=== PATIENT | female | born 1945 | race Caucasian/White ===

== ENCOUNTER 2018-11-23 08:00 | Outpatient (CLI) | payer MEDICARE, MEDICAID ==
[2015-06-03 13:33] VITALS: BMI 19.4
[~2018-11-23 08:00] MED LIST: ARTIFICIAL TEAR15 ML EACH EYE; ASPIRIN81 MG PO; CARDIZEM CD180 MG PO; COLACE100 MG PO; DESERYL100 MG PO; FLUTICASONE PRO16 GM NASAL; HYDROCODONE-APA1 TAB PO; LEVAQUIN500 MG PO; LISINOPRIL-HCTZ1 T13 PO; LOVENOX40 MG/0.4 SC; NEURONTIN 300300 MG PO; NEURONTIN600 MG PO; ONDANSETRON4 MG/2 M3 IV; PHENERGAN25 M1 PO; PLAVIX75 MG PO; PRAVACHOL20 MG PO; PREVACID30 MG PO; RESTORIL15 MG PO; SENOKOT-S TABLE1 TAB PO; SOMA350 MG PO; SYNTHROID75 MCG PO; VISTARIL25 MG; VITAMIN D31000 UNI2; XANAX0.25 MG PO
== END 2018-11-23 09:00 | disposition home or self-care (01) ==
LOC: D.MAMMO 08:00
DX: Z12.31 Encounter for screening mammogram for malignant neoplasm of breast (principal)